=== PATIENT | female | born 1965 | race Hispanic/Latino ===

== ENCOUNTER 2024-08-28 09:53 | Day surgery (SDC) | payer OTHER ==
[2024-08-28] VITALS (13 sets, daily range): BP systolic 125–151; BP diastolic 62–89; PULSE 75–89; RESP 15–18; TEMP 97.1–98.6
[~2024-08-28] VITALS: Ht 157.5 cm; Wt 72.6 kg
[~2024-08-28 09:53] MED LIST: LISI10TA24 PO
[2024-08-28] MEDS ORDERED: INDOMETHACIN 100 MG SUPP.RECT RC ONE (10:00)
[2024-08-28] MEDS: 0.9%NACL 1000ML 1,000 ML IV ONE (10:37)
[2024-08-28] MEDS ORDERED: LIDOCAINE PF 100MG/5ML (2%) SYRINGE 5ML ONE (12:56)
[2024-08-28] MEDS ORDERED: rocuRONium bROMide 10MG/1ML 5ML VL ONE (12:57)
[2024-08-28] MEDS ORDERED: dexaMETHasone SOD PHOSPHATE 10MG/ML 1ML VIAL ONE (12:57)
[2024-08-28] MEDS ORDERED: GLYCOPYRROLATE 0.2 MG/ML 5 ML VIAL ONE (12:57)
[2024-08-28] MEDS ORDERED: NEOSTIGMINE METHYLSULFATE 1MG/ML IV ONE (12:57)
[2024-08-28] MEDS ORDERED: SUCCINYLCHOLINE CHLORIDE 20 MG/ML 10 ML VIAL ONE (12:57)
[2024-08-28] MEDS ORDERED: ondanSETRON 4MG INJ ONE ×2 (12:57→13:00)
[2024-08-28] MEDS ORDERED: proPOFol 10 MG/ML 20ML VIAL IV ONE (12:57)
[2024-08-28] MEDS ORDERED: FENTanyl CITRate PF 50 MCG/1 ML 2ML VIAL ONE (12:58)
[2024-08-28] MEDS ORDERED: MIDAZOLAM HCL 1 MG/ML 2ML VIAL ONE (13:00)
[2024-08-28] MEDS ORDERED: ePHEDrine SULFate 50 MG/ML AMPULE ONE (14:36)
[2024-08-28] MEDS ORDERED: SUGAMMADEX SODIUM 200 MG/2 ML VIAL IV ONE (14:54)
[2024-08-28] MEDS ORDERED: IOHEXOL-350 50ML VIAL IV ONE (15:02)
--- NOTE | 2024-08-28 16:20 | HMCIMG ---
Fluoroscopic guidance History: ABNORMAL FINDINGS ON DIAGNOSTIC IMAGING OF LIVER AND BILIARY TRACT Fluoroscopic guidance provided. Procedure by ordering physician in operating room suite with fluoroscopic guidance. Several spot images were obtained. Impression: Fluoroscopic guidance.
== END 2024-08-28 16:20 | disposition home or self-care (01) ==
LOC: DAH 09:53
PROVIDERS: ATTEND Internal Medicine Gastroenterology
DX: R93.2 Abnormal findings on diagnostic imaging of liver and biliary tract (principal); K83.1 Obstruction of bile duct; K83.09 Other cholangitis; I10 Essential (primary) hypertension; E78.2 Mixed hyperlipidemia; Z90.49 Acquired absence of other specified parts of digestive tract; Z79.899 Other long term (current) drug therapy
CPT/HCPCS: 81025; 43261; 43275; 74328; J3010; J1100; J0330; J7030 ×2; J3490 ×3; J2003; J2704; J2405 ×2; J2710; Q9967; A4215 ×2; A4223; A4657 ×2; A7002; A4222; A4221; A4663; A4606; C1769; C1773; 43273; 74330; J2250